=== PATIENT | male | born 1985 | race Caucasian/White ===

== ENCOUNTER → 2016-04-02 | Outpatient (CLI) | payer BC ==
--- NOTE | 2016-04-02 11:16 | CT ---
CT Maxillofacial (Without Contrast) at 1008 hours History: Chronic sinusitis. Technique: Noncontrast axial computed tomographic images of the sinuses at 0.625 mm slice thickness w ith coronal reconstructions. Dose reduction techniques were utilized. Findings: In the inferior aspect of the left maxillary sinus there are two polypoid lesions measuring up to 2.2 x 1.6 cm. Right maxillary sinus is clear. Bilateral ethmoid, bilateral frontal, and bilate ral sphenoid sinuses are clear. Mastoid air cells and middle ears appear clear. No bone expansion or destruction. Mild nasal septal deviation to the left approximately 2 mm. IMPRESSION: 1. Left maxillary sinusitis with two mucous retention cysts or polyps up to 2.2 cm. 2. No air-fluid levels, bone expansion or destruction. 3. Mild nasal septal deviation to the left.
== END ==
LOC: FIMAGING 09:44
PROVIDERS: ATTEND Allergy & Immunology Allergy
DX: J32.0 Chronic maxillary sinusitis (principal); J34.1 Cyst and mucocele of nose and nasal sinus; J34.2 Deviated nasal septum